=== PATIENT | male | born 1945 | race Caucasian/White ===

== ENCOUNTER → 2021-01-28 | Outpatient (CLI) | payer OTHER ==
[~2021-01-28] MED LIST: ANDROGEL75 GM TOP; LIPITOR40 MG PO; LISINOPRIL20 MG PO
--- NOTE | 2021-01-28 11:20 | 2DMMODE ---
[facility] [place] [address] 2 D/M-MODE ECHOCARDIOGRAM Name: CADEN MARSHALL Room #: REG [facility]#: [id number] Admission: 01/28/21 Attend Phys: Miguel Ayala MD Discharge: Date of : 45 Report #: [id number] THIS REPORT FOR: cc: Miguel Lin MD, Charles MD Santiago, Patrick MD [facility] ~ APPROVED REPORT Study performed: 01/28/2021 09:20:37 EXAM: Comprehensive 2D, Doppler, and color-flow Echocardiogram Patient Location: Out-Patient Room #: 2 Status: routine BSA: 0.70 HR: 84 bpm BP: 136/82 mmHg Rhythm: Pacemaker Other Information Study Quality: Good Indications Pacemaker CAD 2D Dimensions RVDd: 36.44 mm IVSd: 11.09 (7-11mm) LVOT Diam: 19.39 (18-24mm) LVDd: 58.58 mm PWd: 10.68 (7-11mm) LVDs: 42.24 (25-40mm) Left Atrium: 41.23 (27-40mm) Aortic Root: 42.54 mm IVC: 11.00 mm Volumes Left Atrial Volume (Systole) Single Plane 4CH: 45.61 mL Single Plane 2CH: 56.78 mL LA ESV Index: 80.00 mL/m2 Aortic Valve AoV Peak Trell.: 1.15 m/s AO Peak Gr.: 5.31 mmHg LVOT Max P.65 mmHg LVOT Max V: 0.81 m/s [facility] [address] [place] [address] 2 D/M-MODE ECHOCARDIOGRAM Name: CADEN MARSHALL Room #: REG [facility]#: [id number] Admission: 01/28/21 Attend Phys: Miguel Ayala MD Discharge: Date of : 45 Report #: [id number] PROMISE Vmax: 2.08 cm2 Mitral Valve E/A Ratio: 0.5 MV Decel. Time: 305.56 ms MV E Max Trell.: 0.53 m/s MV A Trell.: 1.05 m/s MV PHT: 88.61 ms IVRT: 96.89 ms Pulmonary Valve PV Peak Trell.: 1.10 m/s PV Peak Gr.: 4.88 mmHg Pulmonary Vein P Vein S: 0.60 m/s P Vein A: 0.31 m/s P Vein D: 0.36 m/s P Vein A Dur.: 115.3 msec P Vein S/D Ratio: 1.67 Tricuspid Valve TR Peak Trell.: 2.52 m/s TR Peak Gr.: 25.49 mmHg PA Pressure: 30.00 mmHg Left Ventricle The left ventricle is normal size. There is normal LV segmental wall motion. There is normal left ventricular wall thickness. The left ventricular systolic function is normal. The left ventricular ejection fraction is within the normal range. LVEF is 55-60%. Grade I - abnormal relaxation pattern. Right Ventricle The right ventricle is normal size. The right ventricular systolic function is normal. Pacemaker lead is present in the right ventricle. Atria Left atrium is dilated. Right atrium is dilated. Pacemaker lead is present in the right atrium. Aortic Valve The aortic valve is normal in structure. No aortic regurgitation is present. There is no aortic valvular stenosis. Mitral Valve The mitral valve is normal in structure. Trace to mild mitral regurgitation. No evidence of mitral valve stenosis. [facility] [place] [address] 2 D/M-MODE ECHOCARDIOGRAM Name: ROLANDOCADEN Tracy Room #: REG [facility]#: [id number] Admission: 01/28/21 Attend Phys: Miguel Ayala MD Discharge: Date of : 45 Report #: [id number] Tricuspid Valve The tricuspid valve is normal in structure. There is trace to mild tricuspid regurgitation. Estimatad PAP 30 mmHg. There is no pulmonary hypertension. Pulmonic Valve The pulmonary valve is normal in structure. There is no pulmonic valvular regurgitation. Great Vessels The aortic root is normal in size. IVC is normal in size and collapses >50% with inspiration. Pericardium There is no pericardial effusion. <Conclusion> Normal left ventricular size/wall thickness Ejection fraction 55-60% Grade 1 diastolic dysfunction Normal right ventricular size/function normal Mild biatrial enlargement Pacer wire detected in the right ventricle Color-flow Doppler study was performed of the aortic/mitral/tricuspid/aortic valve Normal aortic valve structure and function Trace of mitral valve insufficiency Trace tricuspid valve insufficiency Pulmonary systolic pressure estimated 30 mmHg Normal aortic root size No pericardial effusion <ELECTRONICALLY SIGNED> By: Marlon Xie MD, FACC 01/28/211119 19 19 Marlon Xie MD, FACC /INF
== END ==
LOC: CV 10:12
PROVIDERS: ATTEND Orthopaedic Surgery
DX: I08.1 Rheumatic disorders of both mitral and tricuspid valves (principal); I25.10 Atherosclerotic heart disease of native coronary artery without angina pectoris; Z95.0 Presence of cardiac pacemaker